=== PATIENT | male | born 1980 | race Caucasian/White ===

== ENCOUNTER 2016-08-16 12:09 | Emergency (ER) | payer OTHER ==
[~2016-08-16] VITALS: Ht 188 cm; Wt 127.3 kg
[~2016-08-16 12:09] MED LIST: KLONOPIN0.5 MG PO; NORCO 325 MG-51 TAB PO
[2016-08-16 12:11] VITALS: BP 143/104; PULSE 92; TEMP 98
[2016-08-16] MEDS ORDERED: ZESTRIL 10MG10 MG PO (12:15)
[2016-08-16] MEDS ORDERED: NEXIUM 20MG20 MG PO (12:15)
[2016-08-16] MEDS ORDERED: ZOFRAN ODT4 MG PO (13:10)
[2016-08-16] MEDS ORDERED: NORCO 325 MG-51 TAB PO (13:10)
== END 2016-08-16 13:33 | disposition home or self-care (01) ==
LOC: COL.ER 12:09
DX: S50.11XA Contusion of right forearm, initial encounter (principal); W22.8XXA Striking against or struck by other objects, initial encounter
CPT/HCPCS: J2270

== ENCOUNTER → 2016-09-12 | Outpatient (CLI) | payer OTHER ==
[~2016-09-12] MED LIST changes: +COLACE 100100 MG/CAP PO; +MOBIC15 MG PO; +NEXIUM 20MG20 MG PO; +PERCOCET 325 MG1 TA2 PO; +ZESTRIL 10MG10 MG PO; +ZOFRAN 4MG T4 MG/TAB PO; +ZOFRAN ODT4 MG PO
== END ==
LOC: COL.RAD 12:22
DX: M75.111 Incomplete rotator cuff tear or rupture of right shoulder, not specified as traumatic (principal); X58.XXXA Exposure to other specified factors, initial encounter; Y99.0 Civilian activity done for income or pay

== ENCOUNTER → 2016-10-13 | Outpatient (CLI) | payer OTHER | LOC: COL.RAD 10:49 | DX: R10.84 Generalized abdominal pain (principal); K76.0 Fatty (change of) liver, not elsewhere classified; R16.0 Hepatomegaly, not elsewhere classified | CPT/HCPCS: Q9967 ==

== ENCOUNTER 2016-12-11 08:04 | Day surgery (SDC) | payer OTHER ==
[2016-12-11] VITALS (8 sets, daily range): BP systolic 128–143; BP diastolic 77–95; PULSE 53–84; TEMP 97.8–98.6
[~2016-12-11] VITALS: Ht 188 cm; Wt 127.3 kg
[~2016-12-11 08:04] MED LIST changes: -COLACE 100100 MG/CAP PO; -MOBIC15 MG PO; -PERCOCET 325 MG1 TA2 PO; -ZOFRAN 4MG T4 MG/TAB PO
[2016-12-11] MEDS ORDERED: PERCOCET 325 MG1 TA2 PO (12:28)
[2016-12-11] MEDS ORDERED: MOBIC15 MG PO (12:29)
[2016-12-11] MEDS ORDERED: COLACE 100100 MG/CAP PO (12:29)
[2016-12-11] MEDS ORDERED: ZOFRAN 4MG T4 MG/TAB PO (12:30)
== END 2016-12-11 13:25 | disposition home or self-care (01) ==
LOC: SDCO 08:04
DX: S43.431A Superior glenoid labrum lesion of right shoulder, initial encounter (principal); W22.8XXA Striking against or struck by other objects, initial encounter; I10 Essential (primary) hypertension; R12 Heartburn; F17.210 Nicotine dependence, cigarettes, uncomplicated; Z80.9 Family history of malignant neoplasm, unspecified
CPT/HCPCS: C1713; J0171; J0690; J1100; J1800; J2250; J2270; J2405; J2704; J3010; J7120

== ENCOUNTER → 2017-07-13 | Outpatient (CLI) | payer OTHER ==
[~2017-07-13] MED LIST changes: +COLACE 100100 MG/CAP PO; +MOBIC15 MG PO; +PERCOCET 325 MG1 TA2 PO; +ZOFRAN 4MG T4 MG/TAB PO
== END ==
LOC: COL.RAD 13:06
DX: M19.071 Primary osteoarthritis, right ankle and foot (principal); S99.811S Other specified injuries of right ankle, sequela; S93.491A Sprain of other ligament of right ankle, initial encounter; M76.71 Peroneal tendinitis, right leg

== ENCOUNTER 2017-09-10 05:34 | Day surgery (SDC) | payer OTHER ==
[~2017-09-10] VITALS: Ht 188 cm; Wt 130.7 kg
[2017-09-10 05:54] VITALS: BP 135/94; PULSE 66; TEMP 98.4
[2017-09-10 08:52] VITALS: TEMP 97.8
[2017-09-10 09:15] VITALS: BP 126/76; PULSE 64
[2017-09-10 09:30] VITALS: BP 121/77; PULSE 71
[2017-09-10 09:45] VITALS: BP 119/71; PULSE 74
[2017-09-10 10:00] VITALS: BP 112/72; PULSE 71
== END 2017-09-10 10:39 | disposition home or self-care (01) ==
LOC: SDCO 05:34
DX: M25.771 Osteophyte, right ankle (principal); M66.871 Spontaneous rupture of other tendons, right ankle and foot; M25.871 Other specified joint disorders, right ankle and foot; M25.371 Other instability, right ankle; Q68.8 Other specified congenital musculoskeletal deformities; Z53.33 Arthroscopic surgical procedure converted to open procedure; I10 Essential (primary) hypertension; K21.9 Gastro-esophageal reflux disease without esophagitis; K76.0 Fatty (change of) liver, not elsewhere classified; Z68.35 Body mass index [BMI] 35.0-35.9, adult; Z80.9 Family history of malignant neoplasm, unspecified; F17.220 Nicotine dependence, chewing tobacco, uncomplicated
CPT/HCPCS: C1713; J0690; J1100; J1885; J2250; J2405; J2704; J3010; J7120

== ENCOUNTER 2019-12-19 07:20 | Day surgery (SDC) | payer OTHER ==
[~2019-12-19] VITALS: Ht 188 cm; Wt 129.1 kg
[~2019-12-19 07:20] MED LIST changes: +BENICAR 20MG TA20 MG PO; -ZESTRIL 10MG10 MG PO
[2019-12-19 07:53] VITALS: BP 120/83; PULSE 60; TEMP 98
[2019-12-19 09:30] VITALS: BP 125/87; PULSE 60; TEMP 97.5
[2019-12-19 09:45] VITALS: BP 129/87; PULSE 65
[2019-12-19 10:00] VITALS: BP 144/91; PULSE 52
== END 2019-12-19 10:20 | disposition home or self-care (01) ==
LOC: SDCO 07:20
DX: D12.5 Benign neoplasm of sigmoid colon (principal); K57.30 Diverticulosis of large intestine without perforation or abscess without bleeding; I10 Essential (primary) hypertension; K21.9 Gastro-esophageal reflux disease without esophagitis; F17.220 Nicotine dependence, chewing tobacco, uncomplicated; Z83.3 Family history of diabetes mellitus; Z79.899 Other long term (current) drug therapy
CPT/HCPCS: J2704; J3010; J7120

== ENCOUNTER 2021-06-05 09:45 | Outpatient (RCR) | payer OTHER | END 2021-08-02 | disposition home or self-care (01) | LOC: MKS.ESL.PT | DX: M25.512 Pain in left shoulder (principal) ==

== ENCOUNTER 2021-07-16 05:32 | Day surgery (SDC) | payer OTHER ==
[~2021-07-16] VITALS: Ht 188 cm; Wt 130.0 kg
--- NOTE | 2021-07-16 06:15 | NUR ---
Taken to PACU per cart accompanied by spouse to have block placed pre-operatively.
[2021-07-16 06:22] VITALS: BP 138/89; PULSE 75; TEMP 98.3
--- NOTE | 2021-07-16 06:42 | NUR ---
Patient returns to room per cart and awaits surgery.
[2021-07-16 09:01] VITALS: BP 136/83; PULSE 84
--- NOTE | 2021-07-16 09:01 | NUR ---
Patient returns to room 1 per cart accompanied by Surekha LIAO and is awake and alert. Temp 97.4 and room air sats 96%. Left arm in sling and states that the arm, shoulder, and fingers are numb. Interscalene block was placed pre-operativley. IV fluids infusing right hand. Spouse in room. Taking ice chips and Sprite. Denies pain or nausea.
[2021-07-16 09:16] VITALS: BP 114/77; PULSE 90
--- NOTE | 2021-07-16 09:16 | NUR ---
Watches TV and sips on Sprite.
[2021-07-16 09:31] VITALS: BP 126/86; PULSE 86
--- NOTE | 2021-07-16 09:31 | NUR ---
IV to INT and assisted up to the bathroom and voids. Gait steady with ambulation and continues to deny pain or nausea.
[2021-07-16 09:46] VITALS: BP 118/75; PULSE 81
--- NOTE | 2021-07-16 09:46 | NUR ---
Eating muffin. Denies nausea.
--- NOTE | 2021-07-16 09:58 | NUR ---
Assisted with dressing and INT discontinued. Site is free of redness or swelling. Sling maintained on the left arm. Continues to deny pain or nausea.
--- NOTE | 2021-07-16 10:07 | NUR ---
Discharge instructions given and signed. Patient and spouse both verbalize understanding of these.
--- NOTE | 2021-07-16 10:10 | NUR ---
Patient discharged to home driven by spouse and taken to the front door per wheelchair and assisted into vehicle with dismissal instructions in hand.
[2021-07-16 12:40] VITALS: BP 136/83; PULSE 85; TEMP 97.8
== END 2021-07-16 10:10 | disposition home or self-care (01) ==
LOC: SDCO 05:32
DX: S43.432A Superior glenoid labrum lesion of left shoulder, initial encounter (principal); Z53.33 Arthroscopic surgical procedure converted to open procedure; Z79.1 Long term (current) use of non-steroidal anti-inflammatories (NSAID); X58.XXXA Exposure to other specified factors, initial encounter; Y93.9 Activity, unspecified; M24.112 Other articular cartilage disorders, left shoulder
CPT/HCPCS: A4619; C1713; J0360; J0690; J1100; J1170; J1885; J2250; J2405; J2704; J2795; J3010; J7120

== ENCOUNTER 2021-07-29 10:30 | Outpatient (RCR) | payer OTHER | END 2021-08-02 | disposition home or self-care (01) | LOC: MKS.ESL.PT | DX: Z98.890 Other specified postprocedural states (principal) ==